=== PATIENT | female | born 1965 | race American Indian/Alaskan Native ===

== ENCOUNTER 2017-10-22 11:04 | Emergency (ER) | payer OTHER ==
[~2017-10-22] VITALS: Ht 165.1 cm; Wt 81.7 kg
[~2017-10-22 11:04] MED LIST: ANAPROX DS550 MG PO; AUGMENTIN 875-1 EACH PO; CLARITIN10 M2 PO; NORCO 5-325 TA1 EACH PO; PROAIR HFA8.5 GM IH; PULMICORT FLEX90 MCG; SEPTRA DS TABL1 EACH PO; SUDAFED30 MG PO; ULTRAM50 MG PO; [UNRECOGNIZED DRUG - REMARK]
[2017-10-22] MEDS ORDERED: ISENTRESS400 MG PO (14:04)
[2017-10-22] MEDS ORDERED: TRUVADA 200 MG1 EACH PO (14:04)
== END 2017-10-22 17:31 | disposition home or self-care (01) ==
LOC: ED 11:04
DX: T74.21XA Adult sexual abuse, confirmed, initial encounter (principal); J45.909 Unspecified asthma, uncomplicated; Z79.899 Other long term (current) drug therapy; Z98.890 Other specified postprocedural states; Y07.9 Unspecified perpetrator of maltreatment and neglect
CPT/HCPCS: 36415; 84460; 84703; 86703; 86707; 86803; 87350; 96372; 99284; J0696

== ENCOUNTER 2018-11-07 08:00 | Day surgery (SDC) | payer OTHER ==
[~2018-11-07] VITALS: Ht 165.1 cm; Wt 80.7 kg
[~2018-11-07 08:00] MED LIST changes: +ISENTRESS400 MG PO; +KEFLEX500 MG PO; +TRUVADA 200 MG1 EACH PO
[2018-11-07] MEDS ORDERED: NORCO 5-325 TA1 EACH PO ×2 (13:24)
[2018-11-07] MEDS ORDERED: KEFLEX500 MG PO ×2 (13:24)
--- NOTE | 2018-11-07 13:52 | NUR ---
11/07/18 1352 Yessi Ambriz 1114 PT ARRIVED TO PACU ON 6L VIA MASK, RESP EVEN AND UNLABORED. PT SITTING IN HIGH FOLWERS AND REACTIVE TO TACTILE STIMULI. 1119 PT WOKE TO VERBAL STIMULI AND STARTED COUGHING. O2 MASK REMOVED. O2 SAT 98%. PT REPORTS "I CAN'T BREATHE." ON AUSCULTATION OF THE LUNG, LUNG SOUNDS CLEAR AND NO WHEEZING NOTED. PT EDUCATION GIVEN ON PACKING IN NOSE AND THE FEELING OF SOMETHING IN THROAT. 1133 PT CONTINUES TO REPORT SHE CAN NOT BREATHE, O2 SAT REMAIN STABLE AND LUNGS REMAIN CLEAR. PT SPITTING SMALL AMOUNT OF RED TINGED SPUTUM AND PT EDUCATION GIVEN THE RED STUTUM IS NORMAL FOR PROCEDURE. ORDER FOR ANXIETY MEDICATION GIVEN FROM ROBERTO MOE. MEDICATION GIVEN. 1135 PT FALLING ASLEEP AND O2 DECREASED TO 88%, PT WOKE TO VERBAL STIMULI AND ENCOURGED TO DEEP BREATHE. PT ABLE TO FOLLOW COMMANDS AND TAKE A DEEP BREATH. O2 INCREASED TO 93%. PT ASLEEP OFF AND ON. PT CONTINUES TO REPORT "I CAN'T BREATHE." 1147 RN CONTINUES TO REINFORCE EDUCATION ABOUT PACKING, PT CONTINUES TO REPORT "I CAN'T BREATHE." VITAL SIGNS STABLE. PT MORE AWAKE AND O2 SAT REMAINS ABOVE 95%. PT ENCOURGED TO TRY AND BREATH THROUGH HER NOSE. PAYAL MEJIA CALLED, ORDER FOR DUONEB TO BE GIVEN IF PT NEEDS IT.
--- NOTE | 2018-11-07 15:05 | NUR ---
1245: PATIENT BACK IN DAY SURGERY ROOM. NASAL PACKING IN PLACE. MINIMAL DRAINAGE FROM NOSE. VS CHECKED. IV SITE WNL. SCDs ON. GIVEN ICE WATER, CRACKERS AND JELLO. C/O PAIN 8/10 IN SINUSES, FACE, AND FOREHEAD. 1305: PATIENT MEDICATED FOR PAIN WITH 2 TABS OF NORCO. 1335: VS CHECKED. TOLERATING WATER, CRACKERS AND JELLO. IV DC'D WNL. TIP INTACT. DRESSING APPLIED. 1345: DISCHARGE INSTRUCTIONS GIVEN TO PATIENT. PATIENT DISCHARGED TO HOME WITH FRIEND VIA WHEELCHAIR.
--- NOTE | 2018-11-21 12:42 | OR ---
[facility] [address] [place], [place] [address] Signed DATE OF OPERATION: 11/07/2018 SURGEON: Anuj Hermosillo MD PREOPERATIVE DIAGNOSES: Chronic pansinusitis, septal deformity, septal perforation. POSTOPERATIVE DIAGNOSES: Chronic pansinusitis, septal deformity, septal perforation. PROCEDURE: Septoplasty, bilateral intranasal ethmoidectomy. ANESTHESIA: General, LMA; APPOINTMENT SCHEDULER, Geovanny. PREOPERATIVE HISTORY: Ms. Santos is a 52-year-old lady with chronic sinusitis. She has a large septal perforation, lots of crusting, probably due to previous intranasal drug use. Posterior to the perforation, there was a very large septal spur. Preop CT has shown pansinus opacification mainly in the ethmoids and maxillary. She was taken to the operating room for the above-mentioned procedures after failure of conservative therapy. OPERATIVE PROCEDURE AND FINDINGS: After informed consent, the patient was taken to the operating room, placed in supine position where general LMA anesthesia was induced. The patient and procedure were verified. The patient received preoperative intravenous Ancef and intranasal Cesar-Synephrine. Headlight speculum exam of the nasal cavity showed a large septal perforation encompassing the anterior half of the septum. Posterior on the left side, there was a large spur, which was obstructive impinging on the inferior turbinate. The spur was removed with Risa. Airway was improved. Minimal bleeding. Right nasal cavity was then inspected with the headlight and speculum. The preop CT was viewed throughout. The middle turbinate was medialized. Ethmoid bulla was taken down with the Risa. Anterior and posterior ethmoid air cells were opened per CT review. There was fairly hypertrophic mucosa in the sinuses. No purulence. The middle meatal antrostomy was made with a curved ring curette. The antrostomy was widened with the Risa. There was prominent hypertrophic mucosa in the maxillary sinus with some purulence. After the antrostomy was made adequately, packing was placed on this side. A Howard pack coated with Neosporin in the middle meatus. Same procedure was then Electronically Signed By: ANUJ HERMOSILLO MD 11/21/18 1242 PATIENT NAME: JELANI SANTOS OPERATIVE REPORT DATE OF : 67 REPORT #: [id number] PHYSICIAN: ANUJ HERMOSILLO MD PCP: TIANA CHAMPAGNE REPORT IS CONFIDENTIAL AND NOT TO BE RELEASED WITHOUT AUTHORIZATION [facility] [address] [place], [place] [address] Signed performed on the left side, similar findings. The maxillary sinus has a little bit a more hypertrophic mucosa and purulence. The antrostomy was made as per the right side. A Howard pack was placed. The septal button was then placed, but the perforation was too large for the size of the button so was it was discarded and not placed. Merocel pack was placed on each side, coated with Neosporin, tied anteriorly over a pad. Hemostasis was verified. The pharynx was suctioned clear of blood and secretions. The patient was then awakened, extubated, transported to recovery room in good condition. No complications. BLOOD LOSS: Minimal. SPECIMENS: Right and left sinus contents to pathology separately. Packing was Merocel two pieces each side. No drains. No complications. Anuj Hermosillo MD GC/MODL /[id number] Copies: ~ Electronically Signed By: ANUJ HERMOSILLO MD 11/21/18 1242 PATIENT NAME: JELANI SANTOS OPERATIVE REPORT DATE OF : 67 REPORT #: [id number] PHYSICIAN: ANUJ HERMOSILLO MD PCP: TIANA CHAMPAGNE REPORT IS CONFIDENTIAL AND NOT TO BE RELEASED WITHOUT AUTHORIZATION
== END 2018-11-07 13:45 | disposition home or self-care (01) ==
LOC: DS 08:00 → OPS 08:00 → DS 08:45 → OPS 13:45
PROVIDERS: Otolaryngology
PROC: 09TV0ZZ Resection of Left Ethmoid Sinus, Open Approach (ICD-10-PCS; 2018-11-07)
PROC: 09TU0ZZ Resection of Right Ethmoid Sinus, Open Approach (ICD-10-PCS; 2018-11-07)
PROC: 09QM0ZZ Repair Nasal Septum, Open Approach (ICD-10-PCS; principal; 2018-11-07 08:45)
DX: J34.2 Deviated nasal septum (principal); J32.4 Chronic pansinusitis; J33.8 Other polyp of sinus; J34.89 Other specified disorders of nose and nasal sinuses; H91.92 Unspecified hearing loss, left ear; J45.909 Unspecified asthma, uncomplicated; M19.90 Unspecified osteoarthritis, unspecified site; F17.200 Nicotine dependence, unspecified, uncomplicated; Z79.51 Long term (current) use of inhaled steroids; Z88.0 Allergy status to penicillin; Z79.899 Other long term (current) drug therapy
CPT/HCPCS: 00160; 88305; 88311; J0690; J1100; J2250; J2405; J2704; J3010; J7120

== ENCOUNTER 2018-11-07 16:16 | Emergency (ER) | payer OTHER ==
[~2018-11-07] VITALS: Ht 165.1 cm; Wt 80.7 kg
== END 2018-11-07 17:14 | disposition home or self-care (01) ==
LOC: ED 16:16
DX: J95.830 Postprocedural hemorrhage of a respiratory system organ or structure following a respiratory system procedure (principal); J45.909 Unspecified asthma, uncomplicated; Z88.8 Allergy status to other drugs, medicaments and biological substances; Z79.899 Other long term (current) drug therapy
CPT/HCPCS: 99283

== ENCOUNTER 2018-11-15 20:48 | Emergency (ER) | payer OTHER ==
[~2018-11-15] VITALS: Ht 165.1 cm; Wt 80.7 kg
--- OUTSIDE RECORDS SUMMARY | 2018-11-15 20:50 | XMS ---
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 Yolanda VISIT COUNT (12 MO.) [address] [facility] TOTAL 2 NOTE: Visits indicate total known visits. ED/UCC VISIT TRACKING (12 MO.) 11/15/2018 20:49 [facility] TYPE: Emergency COMPLAINT: - NOSEBLEED,POST SURGERY 11/07/2018 16:17 [facility] TYPE: Emergency COMPLAINT: - NOSE BLEED DIAGNOSES: - Allergy status to other drugs, medicaments and biological substances status - Other half-way (current) drug therapy - Postprocedural hemorrhage of a respiratory system organ or structure following a respiratory system procedure - Unspecified asthma, uncomplicated INPATIENT VISIT TRACKING (12 MO.) No inpatient visits to display in this time frame [email or web address]
== END 2018-11-15 22:53 | disposition home or self-care (01) ==
LOC: ED 20:48
DX: R04.0 Epistaxis (principal); J45.909 Unspecified asthma, uncomplicated; Z88.8 Allergy status to other drugs, medicaments and biological substances; Z79.899 Other long term (current) drug therapy
CPT/HCPCS: 99283

== ENCOUNTER 2018-11-18 23:00 | Emergency (ER) | payer OTHER ==
[~2018-11-18] VITALS: Ht 165.1 cm; Wt 80.7 kg
--- OUTSIDE RECORDS SUMMARY | 2018-11-18 23:02 | XMS ---
PreManage Notification: JELANI MELLO Security Sole Tier Events No recent Security Events currently on file CRITERIA MET - [facility] - Has Care Guidelines - PDMP - [facility] - 2 Visits in 30 Days CARE PROVIDERS TIANA LOCKWOOD Physician Instructor Bridge: Surgical 11/16/2018-Current PHONE: Unknown Carson Parker Current PHONE: Unknown Selina has no Care Guidelines for this patient. Care History Medical/Surgical 11/16/2018 [facility] \T\middot;\T\nbsp; PATIENT IS A [employer] MEMBER. \T\middot;\T\nbsp; PLEASE REFER PATIENT TO [facility] FOR NON EMERGENT MEDICAL NEEDS. \T\middot;\ T\nbsp; [facility] CAN SEE PATIENTS SAME DAY FOR APTS IF PATIENT CALLS FIRST THING IN THE MORNING. E.D. VISIT COUNT (12 MO.) 3 [facility] TOTAL 3 NOTE: Visits indicate total known visits. 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
== END 2018-11-19 01:01 | disposition home or self-care (01) ==
LOC: ED 23:00
DX: J95.830 Postprocedural hemorrhage of a respiratory system organ or structure following a respiratory system procedure (principal); J45.909 Unspecified asthma, uncomplicated; Z88.8 Allergy status to other drugs, medicaments and biological substances; Z79.899 Other long term (current) drug therapy
CPT/HCPCS: 80053; 85025; 85610; 85730; 99283

== ENCOUNTER → 2018-11-21 | Emergency (ER) | payer OTHER ==
[~2018-11-21] VITALS: Ht 165.1 cm; Wt 80.7 kg
--- OUTSIDE RECORDS SUMMARY | 2018-11-21 04:52 | XMS ---
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 Care History Medical/Surgical 11/16/2018 [facility] \T\middot;\T\nbsp; PATIENT IS A [employer] MEMBER. \T\middot;\T\nbsp; PLEASE REFER PATIENT TO [facility] FOR NON EMERGENT MEDICAL NEEDS. \T\middot;\ T\nbsp; [facility] CAN SEE PATIENTS SAME DAY FOR APTS IF PATIENT CALLS FIRST THING IN THE MORNING. E.D. VISIT COUNT (12 MO.) 4 [facility] TOTAL 4 NOTE: Visits indicate total known visits. ED/UCC VISIT TRACKING (12 MO.) 11/21/2018 04:50 [facility] OR TYPE: Emergency COMPLAINT: - NOSE BLEED 11/18/2018 23:00 [facility] TYPE: Emergency COMPLAINT: - NOSE BLEED DIAGNOSES: - Postprocedural hemorrhage of a respiratory system organ or structure following a respiratory system procedure - Unspecified asthma, uncomplicated - Allergy status to other drugs, medicaments and biological substances status - Other retirement (current) drug therapy 11/15/2018 20:49 [facility] TYPE: Emergency COMPLAINT: - NOSEBLEED,POST SURGERY DIAGNOSES: - Other retirement (current) drug therapy - Allergy status to other drugs, medicaments and biological substances status - Unspecified asthma, uncomplicated - Epistaxis 11/07/2018 16:17 [facility] TYPE: Emergency COMPLAINT: - NOSE BLEED DIAGNOSES: - Allergy status to other drugs, medicaments and biological substances status - 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
== END ==
LOC: ED 04:50
DX: R04.0 Epistaxis (principal); Z88.8 Allergy status to other drugs, medicaments and biological substances; Z79.899 Other long term (current) drug therapy
CPT/HCPCS: 99283

== ENCOUNTER 2021-06-05 13:51 | Emergency (ER) | payer OTHER ==
[~2021-06-05] VITALS: Ht 165.1 cm; Wt 79.4 kg
== END 2021-06-05 15:40 | disposition home or self-care (01) ==
LOC: ED 13:51
DX: M79.89 Other specified soft tissue disorders (principal); Z88.8 Allergy status to other drugs, medicaments and biological substances; Z79.899 Other long term (current) drug therapy
CPT/HCPCS: 73560; 93971; 99284-25

== ENCOUNTER 2022-09-02 20:42 | Emergency (ER) | payer OTHER ==
[~2022-09-02] VITALS: Ht 165.1 cm; Wt 82.2 kg
[2022-09-02] MEDS ORDERED: CALCIUM 600 MG1 EAC7 PO (21:00)
== END 2022-09-02 22:34 | disposition home or self-care (01) ==
LOC: ED 20:42
DX: J10.1 Influenza due to other identified influenza virus with other respiratory manifestations (principal); J45.909 Unspecified asthma, uncomplicated; Z88.8 Allergy status to other drugs, medicaments and biological substances; Z79.899 Other long term (current) drug therapy; Z20.822 Contact with and (suspected) exposure to COVID-19
CPT/HCPCS: 87502; 99283; A9270; U0003

== ENCOUNTER 2024-07-31 05:12 | Emergency (ER) | payer OTHER ==
[~2024-07-31] VITALS: Ht 165.1 cm; Wt 84.3 kg
[~2024-07-31 05:12] MED LIST changes: +CALCIUM 600 MG1 EAC7 PO
[2024-07-31] MEDS ORDERED: methylPREDNISolone 4 MG HOME.PACK PO ONE (05:45)
[2024-07-31] MEDS ORDERED: NEOMYCIN/POLYMYXIN/HYDROCORT 10 ML HOME.PACK OTIC ONE (05:45)
[2024-07-31] MEDS ORDERED: AMOXICILLIN/CLAVULANATE K 875 MG HOME.PACK PO ONE (05:45)
[2024-07-31] MEDS ORDERED: HYDROCODONE BIT/ACETAMINOPHEN 5/325 MG 1 TAB HOME.PACK PO ONE (05:45)
[2024-07-31] MEDS ORDERED: HYDROCODON-ACE1 EA10 PO (05:46)
[2024-07-31] MEDS ORDERED: AMOX TR-K CLV1 EAC1 PO (05:46)
[2024-07-31] MEDS ORDERED: IBUPROFEN 600 MG TAB PO ONE (06:15)
[2024-07-31] MEDS ORDERED: ACETAMINOPHEN 500 MG TAB PO ONE (06:15)
[2024-07-31 06:20] VITALS: BP 160/96
== END 2024-07-31 06:20 | disposition home or self-care (01) ==
LOC: ED 05:12
DX: H66.93 Otitis media, unspecified, bilateral (principal); H60.93 Unspecified otitis externa, bilateral; Z88.8 Allergy status to other drugs, medicaments and biological substances; Z79.899 Other long term (current) drug therapy
CPT/HCPCS: 99282; A9270

== ENCOUNTER 2025-01-25 23:12 | Emergency (ER) | payer OTHER ==
[~2025-01-25] VITALS: Ht 165.1 cm; Wt 79.4 kg
[~2025-01-25 23:12] MED LIST changes: +AMOX TR-K CLV1 EAC1 PO; +HYDROCODON-ACE1 EA10 PO
[2025-01-25] MEDS ORDERED: SODIUM CHLORIDE 0.9% 1,000 ML IV ONE (23:30)
[2025-01-25] MEDS ORDERED: MORPHINE SULFATE 4 MG/ML VIAL IV ONE (23:30)
[2025-01-25] MEDS ORDERED: ondansetron HCL 4 MG/2 ML VIAL IV ONE (23:30)
[2025-01-25 23:48] LABS: BILIRUBIN, URINE NEGATIVE (negative); BLOOD/HGB, URINE TRACE-I (Negative); KETONE, URINE NEGATIVE (Negative); LEUK ESTERASE, URINE NEGATIVE (negative); NITRITE, URINE NEGATIVE (negative)
[2025-01-25 23:53] LABS: ALBUMIN 4.1 g/dL (3.4-5.0); ALBUMIN/GLOBULIN RATIO 1.21 (1.1-2.4); ANION GAP 15.4 (7-21); BILIRUBIN, TOTAL 0.2 mg/dL (0.2-1.0); BUN/CREATININE RATIO 16.16 (6.0-28.6); CALCIUM 8.7 mg/dL (8.5-10.1); CREATININE, SERUM 0.99 mg/dL (0.55-1.02); POTASSIUM 3.4 mmol/L (3.5-5.1); PROTEIN, TOTAL 7.5 g/dL (6.4-8.2)
[2025-01-26 00:04] LABS: BACTERIA, URINE NONE SEEN /hpf (negative); CASTS, URINE NONE SEEN \\lpf; COLLECTION TYPE, URINE CLEAN CATCH; CRYSTALS, URINE NONE SEEN (0-1+); EPITHELIAL CELLS, URINE SQUAMOUS 1+ /lpf (0-1+); REFLEX CULTURE, URINE No (No)
[2025-01-26 00:10] LABS: HEMOGLOBIN 13.4 g/dL (12.0-18.0)
[2025-01-26 00:12] LABS: BASOPHILS 0.3 % (0-2); EOSINOPHILS 4.1 % (0-6); HEMATOCRIT 38.1 % (35.0-50.0); LYMPHOCYTES 26.5 % (24-44); MCH 31.6 (27-36); MCHC 35.2 g/dl (30-36); NEUTROPHILS 61.1 % (39-80); PLATELET COUNT 212 K/uL (140-440); RBC 4.23 M/ul (4.3-5.7)
[2025-01-26] MEDS ORDERED: SIMETHICONE180 MG PO (02:28)
[2025-01-26 02:39] VITALS: BP 132/84
== END 2025-01-26 02:41 | disposition home or self-care (01) ==
LOC: ED 23:12
PROVIDERS: Family Medicine
DX: R14.1 Gas pain (principal); Z88.9 Allergy status to unspecified drugs, medicaments and biological substances
CPT/HCPCS: 36415; 74177; 80053; 81001; 83690; 85025; 96375; 99284-25; J2270; J2405; J7030; Q9967